=== PATIENT | female | born 1960 | race Caucasian/White ===

== ENCOUNTER → 2019-03-09 11:44 | Emergency (ER) | payer SELFPAY ==
[~2019-03-09 11:44] MED LIST: ED Piperacillin/Tazobac 3.375 3.375 GM/100 ML PREMIX.SET IVPB ONE; Lidocaine 1% INJ* 10 MG/ML 30 ML SDV ONE; Piperacillin/Tazobac (*) 3.375 GM BAG ONE
--- NOTE | 2019-03-09 12:16 | ED ---
Skin Complaint - HPI Summary HPI Summary: A 59 y/o female presents to [facility] with a chief complaint of a swollen left breast that she noticed on 03/05/19. The patient denies fevers or chills. She has redness of her left breast and an abscess and claims that she had a ring which she took out of it because it was causing her pain. She rates her pain as a 3/10 in severity. She denies a Hx of DM or any other PMHx. She is worried about possibly being admitted claiming that she works in a [employer] and needs to let her coworkers know if she cannot work tomorrow. - History of Current Complaint Chief Complaint: EDRashSkinAbscess Time Seen by Provider: 03/09/19 12:00 Stated Complaint: LEFT BREAST SWOLLEN AND RED PER PT Hx Obtained From: Patient Onset/Duration: Started Days Ago, Still Present Skin Exposure Onset/Duration: Days Ago Timing: Constant, Lasting Days Onset Severity: Moderate Current Severity: Moderate Pain Intensity: 3 Pain Scale Used: 0-10 Numeric Skin Location: Other: - left breast Character: Swelling, Redness Aggravating Symptom(s): Nothing Alleviating Symptom(s): Nothing Associated Signs & Symptoms: Negative - fever, chills, Rash, Tenderness - Allergy/Home Medications Allergies/Adverse Reactions: Allergies Allergy/AdvReac Type Severity Reaction Status Date / Time No Known Allergies Allergy Verified 03/09/19 11:52 PMH/Surg Hx/FS Hx/Imm Hx Endocrine/Hematology History: Denies: Hx Diabetes Cardiovascular History: Denies: Hx Hypertension Infectious Disease History: No Infectious Disease History: Denies: Traveled Outside the [place] in Last 30 Days - Family History Known Family History: Negative: Blood Disorder - Social History Alcohol Use: None Hx Substance Use: No Hx Tobacco Use: Yes Smoking Status (MU): Heavy Every Day Tobacco Smoker Review of Systems Negative: Fever, Chills Positive: Edema Positive: Other - positive: redness, abscess All Other Systems Reviewed And Are Negative: Yes Physical Exam - Summary Physical Exam Summary: Appearance: Well appearing, no pain distress Skin: tenderness, redness and swelling over her left breast. Head/face: normal Eyes: EOMI, JAY ENT: normal Neck: supple, non-tender Respiratory: CTA, breath sounds present Cardiovascular: RRR, pulses symmetrical Abdomen: non-tender, soft Musculoskeletal: normal, strength/ROM intact Neuro: normal, sensory motor intact, A&Ox3 Triage Information Reviewed: Yes Vital Signs On Initial Exam: Initial Vitals Temp Pulse Resp BP Pulse Ox 98.6 F 104 20 141/84 95 03/09/19 11:51 03/09/19 11:51 03/09/19 11:51 03/09/19 11:51 03/09/19 11:51 Vital Signs Reviewed: Yes Diagnostics - Vital Signs Vital Signs Temp Pulse Resp BP Pulse Ox 03/09/19 11:51 98.6 F 104 20 141/84 95 - Laboratory Result Diagrams: 03/09/19 12:22 03/09/19 12:22 Lab Statement: Any lab studies that have been ordered have been reviewed, and results considered in the medical decision making process. - Ultrasound No standard instances Ultrasound Interpretation Completed By: Radiologist Summary of Ultrasound Findings: Breast ultrasound impression: The sonographic appearance is consistent with presence of a 4.4 x 3.5 x 4.7 cm. loculated abscess collection at the central to the lower outer quadrant of the LEFT. breast. After treatment for the cellulitis of breast abscess sonographic follow -up is suggested. for reassessment. [place] [facility] [place] Correlate with previous mammography screening history. ED physician has reviewed this imaging report. Course/Dx - Course Course Of Treatment: A 59 y/o female presents to [facility] with a chief complaint of a swollen left breast that she noticed on 03/05/19. The patient denies fevers or chills. The physical exam revealed tenderness, redness and swelling over her left breast. Breast ultrasound impression: Breast ultrasound impression : The sonographic appearance is consistent with presence of a 4.4 x 3.5 x 4.7 cm. loculated abscess collection at the central to the lower outer quadrant of the LEFT. breast. After treatment for the cellulitis of breast abscess sonographic follow-up is suggested. for reassessment. No mammogram on [place] [facility] [place] Correlate with previous mammography screening history. In the ED course the patient was given Zosyn IV. Blood work and chemistries obtained. The patient will be discharged with prescriptions for Augmentin and Motrin. Discussed case with Dr. Martin who did an I&D and recommended discharge and follow up at his office. The patient is agreeable with this plan. - Differential Diagnoses - Skin Complaint Differential Diagnoses: Abscess, Cellulitis - Diagnoses Provider Diagnoses: Breast abscess - Physician Notifications Discussed Care Of Patient With: Miguel Angel Flores Time Discussed With Above Provider: 13:26 Instructed by Provider To: Other - Called Dr. Flores for consult and sepsis. Discharge - Sign-Out/Discharge Documenting (check all that apply): Patient Departure - DC Patient Received Moderate/Deep Sedation with Procedure: No - Discharge Plan Condition: Stable Disposition: HOME Prescriptions: Amoxicillin/Clavulanate TAB* [Augmentin TAB 875*] 875 mg PO BID #20 tab Ibuprofen TAB* [Motrin TAB* 600 MG] 600 mg PO Q8H PRN #20 tab MDD 3 PRN Reason: Pain Patient Education Materials: Abscess Incision and Drainage (DC) Referrals: Mike Martin MD [Medical Doctor] - Additional Instructions: Return to the ED if you experience any new or worsening symptoms. - Billing Disposition and Condition Condition: STABLE Disposition: Home - Attestation Statements Document Initiated by Scribe: Yes Documenting Scribe: Jeremias Sanchez Provider For Whom Andrésibleyda is Documenting (Include Credential): Jaziel Roman MD Scribe Attestation: Jeremias Dawson scribed for Jaziel Roman MD on 03/09/19 at 1532. Scribe Documentation Reviewed: Yes Provider Attestation: The documentation as recorded by the Jeremias spear accurately reflects the service I personally performed and the decisions made by Jaziel antonio MD Status of Scribe Document: Viewed Consult Consult: At 15:[address] Martin who did an I&D and recommended discharge and follow up at his office.
[2019-03-09 12:32] LABS: ABS Basophils 0.1 10^3/ul (0-0.2); ABS Eosinophils 0 10^3/ul (0-0.6); ABS Neutrophils 14.5 10^3/ul (1.5-7.7); ABS Nucleated RBC 0 10^3/ul; Eosinophil % 0.1 %; Hematocrit 42 % (33-41); Hemoglobin 14.4 g/dL (12.0-16.0); Lymphocyte % 11.2 %; Mean Corpuscular HGB Conc 35 g/dL (31-36); Mean Corpuscular Hemoglobin 32 pg (27-31); Mean Corpuscular Volume 93 fL (80-97); Nucleated Red Blood Cells % 0; Platelet Count 248 10^3/uL (150-450); Red Blood Count 4.47 10^6 /uL (3.70-4.87); Red Cell Distribution Width 12 % (10.5-15); White Blood Count 17.6 10^3/uL (3.5-10.8)
[2019-03-09 12:45] LABS: Activated Partial Thrombo Time 30.7 seconds (26.0-36.3); INR 1.15 (0.82-1.09)
[2019-03-09 12:56] LABS: Albumin 4.2 g/dL (3.2-5.2); Albumin/Globulin Ratio 1.2 (1-3); BUN/Creatinine Ratio 13.9 (8-20); Calcium 9.3 mg/dL (8.6-10.3); EGFR African American 100.3 (>60); EGFR Non-African American 82.9 (>60); Globulin 3.5 g/dL (2-4); Potassium 3.8 mmol/L (3.5-5.0); Total Bilirubin 0.5 mg/dL (0.2-1.0); Total Protein 7.7 g/dL (6.4-8.9)
[2019-03-09 15:24] VITALS: BP 122/60
--- NOTE | 2019-03-09 22:35 | OP ---
DATE OF OPERATION: 03/09/19 - EMERGENCY DEPT DATE OF : 60 SURGEON: Mike Martin MD GRAPHIC DESIGN SPECIALIST: Merry Neumann NP ANESTHESIOLOGIST: None. PRE-OP DIAGNOSIS: Left breast abscess. POST-OP DIAGNOSIS: Left breast abscess. OPERATIVE PROCEDURE: Incision and drainage of the left breast abscess. INDICATIONS: The patient is a 59-year-old female who presented to the emergency room with about a week of increasing pain of the left breast, getting more severe last Friday. She came in today because she finally had a day off work to where she could come. She has had increasing pain, swelling, redness of the left breast without any antecedent injury or infection. She has not had previous breast infections or other chronic infections around the body. She did have a nipple piercing 15 years ago. She took that out 2 weeks ago. The past medical history is generally benign. No history of MRSA, no chronic medical illnesses. 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 She is a pack-a- day smoker. Only surgical procedure was tubal ligation. She is not on any regular medications and not allergic to any medications. On examination, she is well-developed, well-nourished female. She appears uncomfortable. Vital signs show temperature of 98.6, heart rate 93, blood pressure 140/80, respirations 20, O2 sat 95%. The most significant exam is left breast which is markedly swollen and erythematous over perhaps two-thirds of the surface. Just lateral to the areola of the left breast, there is an area of skin thinning and fluctuance consistent with an abscess. She has had an ultrasound which confirms approximately 5 cm abscess in this location. After a discussion with the patient, it was decided that incision and drainage of the left breast abscess would be carried out. DESCRIPTION OF PROCEDURE: Therefore, the area was prepped with antiseptic and local infiltrate of anesthesia was administered, 1% plain lidocaine, and approximately 4 cm incision was created and thick, foul smelling pus was forth- coming. Where the skin was thin anteriorly, a cruciate incision was created. The pocket was swept out with my finger and a couple loculations were broken down to reveal a large cavity. This was irrigated out with about 200 mL of saline solution until it was running clear. This was then packed with 4x4 gauze followed by bulky gauze dressing. She is discharged with instructions and with oral antibiotics and will follow up in the office tomorrow for packing change. [id number]/[facility] #: [id number] [place]
== END | disposition home or self-care (01) ==
LOC: ED 11:44
DX: N61.1 Abscess of the breast and nipple (principal); Z72.0 Tobacco use
CPT/HCPCS: 36415; 80053; 83605; 85025; 85610; 85730; 87040; 87070; 87205; 87640; 87641; 96374; 99282; J2543